=== PATIENT | female | born 1975 | race Caucasian/White ===

== ENCOUNTER 2021-04-06 13:36 | Emergency (ER) | payer OTHER ==
[2021-04-06 14:00] VITALS: BP 134/82; PULSE 80; TEMP 98; BMI 24.5
== END 2021-04-06 16:20 | disposition home or self-care (01) ==
LOC: JER 13:36
DX: S80.01XA Contusion of right knee, initial encounter (principal); V79.50XA Passenger on bus injured in collision with unspecified motor vehicles in traffic accident, initial encounter; W22.8XXA Striking against or struck by other objects, initial encounter
CPT/HCPCS: 73562-TC-RT-FY; 99283-25